=== PATIENT | male | born 1960 | race Caucasian/White ===

== ENCOUNTER → 2016-11-12 | Outpatient (CLI) | payer MEDICARE ==
[~2016-11-12] MED LIST: ALDACTONE 25MG25 M1 PO; ASPIRIN E.C. 8181 MG PO; CELEXA 20MG20 MG/TAB PO; CEPHALEXIN500 M1 PO; COREG 25MG25 MG/TAB PO; COREG25 MG PO; LISINOPRIL20 MG PO; LOVASTATIN20 MG PO; MEVACOR 20M20 MG/TAB PO; NORCO 325 MG-51 TAB PO; PRILOSEC10 MG PO; PRINIVIL20 MG PO; PROVENTIL0.09 MG/A1 IH; ZYRTEC 10MG10 MG PO
== END ==
LOC: COL.VAS 14:47
DX: I34.0 Nonrheumatic mitral (valve) insufficiency (principal); R94.39 Abnormal result of other cardiovascular function study; Z95.810 Presence of automatic (implantable) cardiac defibrillator

== ENCOUNTER → 2018-04-30 | Outpatient (CLI) | payer MEDICARE | LOC: COL.RAD 10:08 | DX: N27.1 Small kidney, bilateral (principal); N18.3 Chronic kidney disease, stage 3 (moderate) ==

== ENCOUNTER 2018-07-15 07:39 | Day surgery (SDC) | payer MEDICARE, MEDICAID ==
[~2018-07-15] VITALS: Ht 180.3 cm; Wt 82.9 kg
[2018-07-15] MEDS ORDERED: FLONASEALLERGY INH (08:19)
[2018-07-15] MEDS ORDERED: ZYLOPRIM 100MG100 MG PO (08:21)
[2018-07-15] MEDS ORDERED: CELEBREX 200MG200 MG PO (08:22)
[2018-07-15 08:25] LABS: HEMATOCRIT 44.1 % (42.0-52.0); HEMOGLOBIN 14.8 g/dl (13.5-18.0); MEAN CELL VOLUME 94 fl (80.0-100.0); MEAN CORPUSCULAR HEMOGLOBIN 32 pg (27.0-31.0); MEAN CORPUSCULAR HGB CONC 34 g/dl (33.0-37.0); MEAN PLATELET VOLUME 9.5 fl (7.4-10.4); PLATELET COUNT 283 K/mm3 (130-400); RED BLOOD COUNT 4.69 M/mm3 (4.20-5.60); REDCELL DISTRIBUTION WIDTH-CV 12.8 % (11.5-14.5)
[2018-07-15 08:30] LABS: PROTHROMBIN TIME 11.4 SECONDS (9.7-12.8)
[2018-07-15 08:38] LABS: CALCIUM 9.7 mg/dL (8.4-10.2); CREATININE, serum 1.48 mg/dL (0.66-1.25); POTASSIUM 4.3 mmol/L (3.4-5.0)
[2018-07-15 08:51] VITALS: BP 122/87; PULSE 77
[2018-07-15 10:34] VITALS: BP 129/91; PULSE 89
[2018-07-15 15:46] VITALS: BP 116/73; PULSE 83; TEMP 97.7
[2018-07-15 19:39] VITALS: BP 111/71; PULSE 83; TEMP 97.8
[2018-07-16 02:05] VITALS: BP 92/62; PULSE 77; TEMP 98
[2018-07-16 07:56] VITALS: BP 107/72; PULSE 86; TEMP 97.7
[2018-07-16] MEDS ORDERED: CEPHALEXIN500 M1 PO (09:32)
== END 2018-07-16 11:09 ==
LOC: COL.CAR 07:39 → MEDICAL 12:24 → COL.CAR 07-16 11:09
PROVIDERS: Internal Medicine Cardiovascular Disease
DX: T82.190A Other mechanical complication of cardiac electrode, initial encounter (principal); I42.9 Cardiomyopathy, unspecified; I34.0 Nonrheumatic mitral (valve) insufficiency; I47.2 Ventricular tachycardia; Z79.82 Long term (current) use of aspirin
CPT/HCPCS: OP; C1769; C1894; C1898; J0690; J2250; J3010; J7030; Q9967

== ENCOUNTER 2021-07-31 09:42 | Day surgery (SDC) | payer MEDICARE, MEDICAID ==
[2021-07-31] VITALS (9 sets, daily range): BP systolic 92–124; BP diastolic 60–80; PULSE 68–93; TEMP 98
[~2021-07-31] VITALS: Ht 177.8 cm; Wt 88.4 kg
[~2021-07-31 09:42] MED LIST changes: +CELEBREX 200MG200 MG PO; +FLONASEALLERGY INH; +ZYLOPRIM 100MG100 MG PO
[2021-07-31] MEDS ORDERED: JANUVIA 100MG100 MG PO (10:02)
[2021-07-31] MEDS ORDERED: JANUVIA50 MG PO (10:03)
[2021-07-31] MEDS ORDERED: GLUCOPHAGE500 MG/TAB PO (10:03)
[2021-07-31 10:45] LABS: HEMATOCRIT 43.8 % (42.0-52.0); HEMOGLOBIN 14.7 g/dl (13.5-18.0); MEAN CELL VOLUME 94 fl (80.0-100.0); MEAN CORPUSCULAR HEMOGLOBIN 31 pg (27.0-31.0); MEAN CORPUSCULAR HGB CONC 34 g/dl (33.0-37.0); MEAN PLATELET VOLUME 9.9 fl (7.4-10.4); PLATELET COUNT 223 K/mm3 (130-400); RED BLOOD COUNT 4.68 M/mm3 (4.20-5.60); REDCELL DISTRIBUTION WIDTH-CV 13.2 % (11.5-14.5)
[2021-07-31] MEDS ORDERED: PROTONIX 40MG T40 MG PO (10:47)
[2021-07-31] MEDS ORDERED: CELEXA40 MG PO (10:48)
[2021-07-31] MEDS ORDERED: ENTRESTO 24 MG1 EACH PO (10:49)
[2021-07-31 10:58] LABS: INR 1.1 (0.8-3.0)
[2021-07-31 11:01] LABS: PARTIAL THROMBOPLASTIN TIME 26.2 SECONDS (26.0-37.0)
[2021-07-31 11:04] LABS: CALCIUM 9.8 mg/dL (8.4-10.2); CREATININE, serum 1.45 mg/dL (0.72-1.25); POTASSIUM 4.7 mmol/L (3.5-4.5)
[2021-07-31] MEDS ORDERED: ALDACTONE 25MG25 M1 PO (12:41)
== END 2021-07-31 15:40 | disposition home or self-care (01) ==
LOC: COL.CAR 09:42
PROVIDERS: Internal Medicine Cardiovascular Disease
DX: I42.8 Other cardiomyopathies (principal); I47.2 Ventricular tachycardia; I12.9 Hypertensive chronic kidney disease with stage 1 through stage 4 chronic kidney disease, or unspecified chronic kidney disease; N18.30 Chronic kidney disease, stage 3 unspecified; E78.5 Hyperlipidemia, unspecified; Z95.810 Presence of automatic (implantable) cardiac defibrillator; Z79.82 Long term (current) use of aspirin; Z87.891 Personal history of nicotine dependence; Z79.899 Other long term (current) drug therapy
CPT/HCPCS: C1769; J1200; J1644; J2250; J2930; J3010; Q9967